=== PATIENT | male | born 1935 | race Caucasian/White ===

== ENCOUNTER → 2018-02-11 | Outpatient (CLI) | payer MEDICARE, MEDICAID | LOC: YCFC.O 14:04 | DX: R03.0 Elevated blood-pressure reading, without diagnosis of hypertension (principal); R42 Dizziness and giddiness; Z86.39 Personal history of other endocrine, nutritional and metabolic disease; Z13.6 Encounter for screening for cardiovascular disorders ==

== ENCOUNTER → 2018-06-25 | Outpatient (CLI) | payer MEDICARE, MEDICAID ==
--- NOTE | 2018-06-25 15:24 | RAD ---
EXAM DESCRIPTION: Lumbar Spine 5 Views CLINICAL HISTORY: 83 years Male, RADICULOPATHY, LUMBAR REGION COMPARISON: None. FINDINGS: Five views of the lumbar spine show grade 1 anterolisthesis at L4-5, likely related to facet joint degeneration at the same level. Vertebral body height and alignment are otherwise well maintained. Moderate to moderately advanced degenerative changes are noted at multiple levels in the lumbar spine including facet joint degeneration and degenerative disc disease. Disc space narrowing is worse at T12-L1 and L5-S1. No pars defect is identified. 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 Electronically signed by: Bladimir Rea MD 06/25/2018 3:22 PM CDT
== END ==
LOC: YCFC.O 13:00
PROVIDERS: ATTEND Family Medicine
DX: M54.16 Radiculopathy, lumbar region (principal); R10.9 Unspecified abdominal pain; I10 Essential (primary) hypertension; R35.1 Nocturia; R53.83 Other fatigue